=== PATIENT | male | born 1970 | race Caucasian/White ===

== ENCOUNTER 2020-09-20 15:22 | Emergency (ER) | payer OTHER ==
[2020-09-20 15:30] VITALS: TEMP 97.9
[2020-09-20] MEDS ORDERED: hydrALAZINE HCL 20 MG/ML 1 ML VIAL IVP STA ×2 (15:53→17:17)
--- NOTE | 2020-09-20 15:56 | ED ---
General Adult HPI - General Chief complaint: Recheck/Abnormal Lab/Rx Stated complaint: Hypertension Time Seen by Provider: 09/20/20 15:40 Source: patient, RN notes reviewed Mode of arrival: wheelchair Limitations: no limitations - History of Present Illness Initial comments: Patient is a pleasant 50-year-old male presenting to the emergency department w ith hypertension. Patient went to have dental procedure done however blood pressure was too high. Patient then went to his primary care physician who he has not seen in 6 years. Blood pressure was also high there and patient was advised to come to the emergency department. Patient denies any complaints and does feel symptom-free. No chest pain or dyspnea. No weakness. Patient has history of hypertension however has not been on medications for years. Patient is unclear which medication he is supposed to be on. - Related Data Home Medications Medication Instructions Recorded Confirmed Ibuprofen 800 mg PO Q8H PRN 09/20/20 09/20/20 Multivitamins, Thera [Multivitamin 1 tab PO DAILY 09/20/20 09/20/20 (formulary)] Previous Rx's Medication Instructions Recorded amLODIPine [Norvasc] 5 mg PO DAILY #7 tab 09/20/20 Allergies Allergy/AdvReac Type Severity Reaction Status Date / Time No Known Allergies Allergy Verified 09/20/20 17:11 Review of Systems ROS Statement: Those systems with pertinent positive or pertinent negative responses have been documented in the HPI. ROS Other: All systems not noted in ROS Statement are negative. Constitutional: Denies: fever Eyes: Denies: eye pain ENT: Denies: ear pain Respiratory: Denies: cough, dyspnea Cardiovascular: Denies: chest pain Endocrine: Denies: fatigue Gastrointestinal: Denies: abdominal pain Genitourinary: Denies: dysuria Musculoskeletal: Denies: back pain Skin: Denies: rash Neurological: Denies: headache, weakness, confusion Past Medical History Past Medical History: Hypertension History of Any Multi-Drug Resistant Organisms: None Reported Past Surgical History: No Surgical Hx Reported Past Psychological History: No Psychological Hx Reported Smoking Status: Current every day smoker Past Alcohol Use History: Daily Past Drug Use History: Marijuana General Exam Limitations: no limitations General appearance: alert, in no apparent distress Head exam: Present: atraumatic, normocephalic Eye exam: Present: normal appearance Neck exam: Present: normal inspection Respiratory exam: Present: normal lung sounds bilaterally Cardiovascular Exam: Present: regular rate, normal rhythm, normal heart sounds Expanded Peripheral pulses: 2+: Radial (R), Radial (L), Posterior Tibialis (R), Posterior Tibialis (L) GI/Abdominal exam: Present: soft. Absent: distended, tenderness Extremities exam: Present: normal inspection Neurological exam: Present: alert. Absent: motor sensory deficit Psychiatric exam: Present: normal affect, normal mood Skin exam: Present: normal color Course Vital Signs 09/20/20 09/20/20 09/20/20 15:26 16:04 16:35 Temperature 97.9 F Pulse Rate 80 75 83 Respiratory 20 18 18 Rate Blood Pressure 201/109 188/101 176/102 O2 Sat by Pulse 98 95 95 Oximetry 09/20/20 09/20/20 09/20/20 16:40 17:00 17:25 Temperature Pulse Rate 70 Respiratory 18 Rate Blood Pressure 164/90 157/86 147/82 O2 Sat by Pulse 99 Oximetry EKG Findings - EKG Comments: EKG Findings:: Normal sinus rhythm at 78. WI 162. QRS 104. QT 368. QTC 419. Left axis. Normal QRS. No acute ST change. Medical Decision Making - Medical Decision Making Patient reevaluated and resting comfortably in bed. Blood pressure 150/91. Pat ient rates symptom-free. Patient and family updated on results and plan. - Lab Data Result diagrams: 09/20/20 15:56 09/20/20 15:56 Lab Results 09/20/20 09/20/20 09/20/20 Range/Units 15:56 15:56 15:59 WBC 7.9 (3.8-10.6) k/uL RBC 4.94 (4.30-5.90) m/uL Hgb 15.4 (13.0-17.5) gm/dL Hct 45.4 (39.0-53.0) % MCV 91.8 (80.0-100.0) fL MCH 31.1 (25.0-35.0) pg MCHC 33.9 (31.0-37.0) g/dL RDW 13.2 (11.5-15.5) % Plt Count 208 (150-450) k/uL MPV 10.9 Neutrophils % 54 % Lymphocytes % 35 % Monocytes % 6 % Eosinophils % 2 % Basophils % 1 % Neutrophils # 4.3 (1.3-7.7) k/uL Lymphocytes # 2.8 (1.0-4.8) k/uL Monocytes # 0.5 (0-1.0) k/uL Eosinophils # 0.2 (0-0.7) k/uL Basophils # 0.0 (0-0.2) k/uL Sodium 136 L (137-145) mmol/L Potassium 4.5 (3.5-5.1) mmol/L Chloride 108 H (98-107) mmol/L Carbon Dioxide 19 L (22-30) mmol/L Anion Gap 9 mmol/L BUN 15 (9-20) mg/dL Creatinine 0.80 (0.66-1.25) mg/dL Est GFR (CKD-EPI)AfAm >90 (>60 ml/min/1.73 sqM) Est GFR (CKD-EPI)NonAf >90 (>60 ml/min/1.73 sqM) Glucose 101 H (74-99) mg/dL Calcium 9.7 (8.4-10.2) mg/dL Total Bilirubin 0.5 (0.2-1.3) mg/dL AST 30 (17-59) U/L ALT 26 (4-49) U/L Alkaline Phosphatase 86 (38-126) U/L Total Protein 7.9 (6.3-8.2) g/dL Albumin 4.6 (3.5-5.0) g/dL Urine Color Light Yellow Urine Appearance Clear (Clear) Urine pH 6.0 (5.0-8.0) Ur Specific [place] 1.007 (1.001-1.035) Urine Protein Negative (Negative) Urine Glucose (UA) Negative (Negative) Urine Ketones Negative (Negative) Urine Blood Negative (Negative) Urine Nitrite Negative (Negative) Urine Bilirubin Negative (Negative) Urine Urobilinogen <2.0 (<2.0) mg/dL Ur Leukocyte Esterase Negative (Negative) Disposition Clinical Impression: Hypertension Disposition: HOME SELF-CARE Condition: Stable Instructions (If sedation given, give patient instructions): Hypertension (ED) Additional Instructions: Please do follow-up with your primary care physician in the next day or 2 for recheck. Prescription for blood pressure medication has been sent your pharmacy. Return for uncontrolled blood pressure, chest pain or weakness, worsening symptoms or any other concerns. Prescriptions: amLODIPine [Norvasc] 5 mg PO DAILY #7 tab Is patient prescribed a controlled substance at d/c from ED?: No Referrals: Gertrude Chacko MD [Primary Care Provider] - 1-2 days Time of Disposition: 17:37
[2020-09-20 16:05] VITALS: RESP 18
[2020-09-20 16:12] LABS: Basophils % (A) 1 %; Eosinophils # (A) 0.2 k/uL (0-0.7); Eosinophils % (A) 2 %; HCT 45.4 % (39.0-53.0); HGB 15.4 gm/dL (13.0-17.5); Lymphocytes # (A) 2.8 k/uL (1.0-4.8); Lymphocytes % (A) 35 %; MCH 31.1 pg (25.0-35.0); MCHC 33.9 g/dL (31.0-37.0); MCV 91.8 fL (80.0-100.0); Mean Platelet Volume 10.9; Monocytes # (A) 0.5 k/uL (0-1.0); Monocytes % (A) 6 %; Neutrophils # (A) 4.3 k/uL (1.3-7.7); Neutrophils % (A) 54 %; Platelet Count 208 k/uL (150-450); RBC 4.94 m/uL (4.30-5.90); RDW 13.2 % (11.5-15.5); WBC 7.9 k/uL (3.8-10.6)
[2020-09-20 16:22] LABS: ALT 26 U/L (4-49); AST 30 U/L (17-59); African American GFR (CKD) >90 (>60 ml/min/1.73 sqM); Albumin 4.6 g/dL (3.5-5.0); Alkaline Phosphatase 86 U/L (38-126); Anion Gap 9 mmol/L; Blood Urea Nitrogen 15 mg/dL (9-20); Calcium 9.7 mg/dL (8.4-10.2); Carbon Dioxide 19 mmol/L (22-30); Chloride 108 mmol/L (98-107); Glucose 101 mg/dL (74-99); Non-African American GFR(CKD) >90 (>60 ml/min/1.73 sqM); Potassium 4.5 mmol/L (3.5-5.1); Sodium 136 mmol/L (137-145); Total Bilirubin 0.5 mg/dL (0.2-1.3); Total Protein 7.9 g/dL (6.3-8.2)
--- NOTE | 2020-09-20 16:22 | XR ---
EXAMINATION TYPE: XR chest 2V DATE OF EXAM: 09/20/2020 COMPARISON: NONE HISTORY: Hypertension TECHNIQUE: Frontal and lateral views of the chest are obtained. FINDINGS: There is no focal air space opacity, pleural effusion, or pneumothorax seen. The cardiac silhouette size is within normal limits. There are overlying leads. There is a mild spinal curvature . The osseous structures are intact. IMPRESSION: No acute cardiopulmonary process.
[2020-09-20 16:47] LABS: Appearance,Urine Clear (Clear); Bilirubin,Urine Negative (Negative); Blood,Urine Negative (Negative); Color,Urine Light Yellow; Glucose,Urine (UA) Negative (Negative); Ketones,Urine Negative (Negative); Leukocyte Esterase,Urine Negative (Negative); Nitrite,Urine Negative (Negative); Protein,Urine Negative (Negative); Specific Gravity,Urine 1.007 (1.001-1.035); Urobilinogen,Urine <2.0 mg/dL (<2.0)
[2020-09-20 17:26] VITALS: BP 147/82; PULSE 70
== END 2020-09-20 17:41 | disposition home or self-care (01) ==
LOC: EC 15:22
DX: I10 Essential (primary) hypertension (principal); F17.200 Nicotine dependence, unspecified, uncomplicated; Z79.899 Other long term (current) drug therapy
CPT/HCPCS: 36415; 93005; 80053; 85025; 81003; 71046; 99283; 96374; J0360

== ENCOUNTER 2020-11-07 08:34 | Day surgery (SDC) | payer OTHER ==
[2020-11-04 16:19] VITALS: BMI 27.1
[~2020-11-07 08:34] MED LIST: LACTATED RINGERS 1,000 ML IV SCH
[2020-11-07 09:35] VITALS: RESP 16; TEMP 97.5
[2020-11-07] MEDS ORDERED: LIDOCAINE 1% (10MG/ML) FOR IV START INTRADERMA ONE (09:40)
[2020-11-07] MEDS ORDERED: PROPOFOL 10 MG/ML 20 ML VIAL IV ONE (10:05)
--- NOTE | 2020-11-07 10:09 | P.GSHP ---
History of Present Illness H&P Date: 11/07/20 Chief Complaint: Screening colonoscopy This a 50-year-old male presents today for screening colonoscopy patient denies a significant complaints.. Past Medical History Past Medical History: Hyperlipidemia, Hypertension History of Any Multi-Drug Resistant Organisms: None Reported Past Surgical History: No Surgical Hx Reported Past Anesthesia/Blood Transfusion Reactions: No Reported Reaction Smoking Status: Current every day smoker Medications and Allergies Home Medications Medication Instructions Recorded Confirmed Type Aspirin [Adult Low Dose Aspirin EC] 81 mg PO DAILY 11/04/20 11/04/20 History Atorvastatin [Lipitor] 40 mg PO HS 11/04/20 11/04/20 History Carvedilol [Coreg] 3.125 mg PO BID 11/04/20 11/04/20 History Losartan [Cozaar] 25 mg PO QAM 11/04/20 11/04/20 History Multivitamins, Thera [Multivitamin 1 tab PO DAILY 11/04/20 11/04/20 History (formulary)] amLODIPine [Norvasc] 10 mg PO QAM 11/04/20 11/04/20 History Allergies Allergy/AdvReac Type Severity Reaction Status Date / Time No Known Allergies Allergy Verified 11/07/20 09:24 Surgical - Exam Vital Signs Temp Pulse Resp BP Pulse Ox 97.5 F L 63 16 177/101 96 11/07/20 09:31 11/07/20 09:31 11/07/20 09:31 11/07/20 09:31 11/07/20 09:31 - General well developed, well nourished, no distress - Eyes PERRL - ENT normal pinna - Neck no masses - Respiratory normal expansion - Cardiovascular Rhythm: regular - Abdomen Abdomen: soft, non tender Assessment and Plan Assessment: We'll perform screening colonoscopy
--- NOTE | 2020-11-07 10:16 | P.OP ---
Date of Procedure: 11/07/20 Preoperative Diagnosis: Screening colonoscopy Postoperative Diagnosis: Normal colonoscopy Procedure(s) Performed: Colonoscopy Anesthesia: MAC Surgeon: Mitesh Wilkerson Pathology: none sent Condition: stable Disposition: PACU Description of Procedure: PROCEDURE: The patient was placed on the endoscopy table in the lateral position. Digital rectal examination was performed which revealed no abnormalities. The prostate was symmetrical without nodules. Flexible colonoscope was then placed in the patient's anus and passed throughout the entire colon. The ileocecal valve was visualized. The cecum, ascending, transverse, descending and sigmoid colon were normal. The rectum was normal as well. There were no masses, polyps or diverticula noted in the entire colon. SUMMARY OF FINDINGS: Normal colonoscopy.
[2020-11-07 10:41] VITALS: BP 155/90; PULSE 59
== END 2020-11-07 11:02 | disposition home or self-care (01) ==
LOC: ORWHC2ENDO 08:34
PROVIDERS: ATTEND Surgery
DX: Z12.11 Encounter for screening for malignant neoplasm of colon (principal); I10 Essential (primary) hypertension; E78.5 Hyperlipidemia, unspecified; F17.210 Nicotine dependence, cigarettes, uncomplicated; Z79.82 Long term (current) use of aspirin; Z79.899 Other long term (current) drug therapy
CPT/HCPCS: J2704; G0121; 45378

== ENCOUNTER 2021-02-26 12:05 | Inpatient (IN) | payer OTHER ==
[2021-02-26] MEDS ORDERED: ASPIRIN 81 MG PO STA (12:17)
[2021-02-26] MEDS ORDERED: MORPHINE SULFATE 4 MG/ML SYRINGE IV STA (12:17)
[2021-02-26 12:41] LABS: Basophils # (A) 0.1 k/uL (0-0.2); Basophils % (A) 0 %; Eosinophils # (A) 0.2 k/uL (0-0.7); Eosinophils % (A) 2 %; HCT 43.8 % (39.0-53.0); HGB 15.1 gm/dL (13.0-17.5); Lymphocytes # (A) 3.5 k/uL (1.0-4.8); Lymphocytes % (A) 31 %; MCH 31.8 pg (25.0-35.0); MCHC 34.4 g/dL (31.0-37.0); MCV 92.4 fL (80.0-100.0); Mean Platelet Volume 11.1; Monocytes # (A) 0.6 k/uL (0-1.0); Monocytes % (A) 5 %; Neutrophils # (A) 6.9 k/uL (1.3-7.7); Neutrophils % (A) 61 %; Platelet Count 267 k/uL (150-450); RBC 4.74 m/uL (4.30-5.90); RDW 13.7 % (11.5-15.5); WBC 11.3 k/uL (3.8-10.6)
--- NOTE | 2021-02-26 12:48 | XR ---
EXAMINATION TYPE: XR chest 2V DATE OF EXAM: 02/26/2021 COMPARISON: 09/20/2020 TECHNIQUE: PA and lateral views submitted. HISTORY: Pain FINDINGS: The lungs are clear and there is no pneumothorax, pleural effusion, or focal pneumonia. Arthropathy of the shoulders. No overt failure. Heart size normal. Hypertrophic and degenerative change of the s [place]. IMPRESSION: 1. No acute process.
[2021-02-26 12:54] LABS: Albumin 4.7 g/dL (3.5-5.0); Potassium 3.9 mmol/L (3.5-5.1); Total Bilirubin 0.5 mg/dL (0.2-1.3); Total Protein 7.7 g/dL (6.3-8.2)
[2021-02-26 13:04] LABS: INR 0.9 (<1.2); Prothrombin Time 9.9 sec (9.0-12.0)
--- NOTE | 2021-02-26 13:07 | ED ---
General Adult HPI - General Chief complaint: Chest Pain Stated complaint: Chest Pain/Dizziness Time Seen by Provider: 02/26/21 12:10 Source: patient, RN notes reviewed, old records reviewed Mode of arrival: wheelchair - History of Present Illness Initial comments: Patient is a 51-year-old male with past medical history remarkable for tobacco use, hypertension presents to emergency department approximately 2 hours of constant chest pain. He describes as a constant sharp sensation over the left chest. It does not radiate. He denies any palliative or provocative factors. He is a [facility] He endorsed a feeling of lightheadedness earlier when the chest and sternum which is since resolved. He currently states he feels okay except for the chest pain. Denies any current shortness of breath, abdominal pain, nausea, vomiting. Denies any fatigue. He has no other acute complaints at this time. Denies any history of hemoptysis, or external swelling, worsening exertional dyspnea. Denies any worsening orthopnea. Denies any history of [place] previously. - Related Data Home Medications Medication Instructions Recorded Confirmed Aspirin [Adult Low Dose Aspirin EC] 81 mg PO DAILY 11/04/20 02/26/21 Atorvastatin [Lipitor] 40 mg PO HS 11/04/20 02/26/21 amLODIPine [Norvasc] 10 mg PO DAILY 11/04/20 02/26/21 Carvedilol [Coreg] 6.25 mg PO BID 02/26/21 02/26/21 Ergocalciferol [Vitamin D2 (1250 1,250 mcg PO MO 02/26/21 02/26/21 Mcg = 35280 Iu)] Losartan Potassium 100 mg PO DAILY 02/26/21 02/26/21 Allergies Allergy/AdvReac Type Severity Reaction Status Date / Time No Known Allergies Allergy Verified 02/26/21 13:53 Review of Systems ROS Statement: Those systems with pertinent positive or pertinent negative responses have been documented in the HPI. Review of Systems: CONST: Denies fever EYES: Denies blurry vision ENT: Denies nasal congestion C/V: Endorses chest pain RESP: Denies shortness of breath GI: Denies abdominal pain : Denies dysuria SKIN: Denies rash. MSK: Denies joint pain. NEURO: Denies headache ROS Other: All systems not noted in ROS Statement are negative. Past Medical History Past Medical History: Hyperlipidemia, Hypertension History of Any Multi-Drug Resistant Organisms: None Reported Past Surgical History: No Surgical Hx Reported Past Anesthesia/Blood Transfusion Reactions: No Reported Reaction Past Psychological History: No Psychological Hx Reported Smoking Status: Current every day smoker General Exam - General Exam Comments Initial Comments: General: Appears in mild distress secondary to chest discomfort. HEAD: Normal with no signs of head trauma. EYES: PERRLA, EOMI, conjunctiva normal, no discharge. Pupils are 3 mm bilaterally. ENT: Hearing grossly intact, normal oropharynx. RESPIRATORY: Clear breath sounds bilaterally. No wheezes, rales, or rhonchi. C/V: Regular rate and rhythm. S1 and S2 auscultated, no edema, peripheral pulses 2+ and intact throughout. Chest pain is nonreproducible on palpation. ABD: Abd is soft, nontender, nondistended EXT: Normal range of motion, no obvious deformity SKIN: No rashes or lesions observed on exposed skin. NEURO: Alert and oriented x 4. Cranial nerves II-XII intact. No focal sensory or strength deficits. Course Vital Signs 02/26/21 02/26/21 02/26/21 12:05 12:30 14:00 Temperature 97.6 F Pulse Rate 64 63 46 L Respiratory 18 14 17 Rate Blood Pressure 133/78 120/78 O2 Sat by Pulse 100 99 99 Oximetry 02/26/21 14:30 Temperature Pulse Rate 48 L Respiratory 17 Rate Blood Pressure 154/81 O2 Sat by Pulse 99 Oximetry Medical Decision Making - Medical Decision Making Based on the patient's presentation and physical exam, I'm concerned for cardiac etiology for his current symptoms. Therefore we will obtain cardiac workup, which includes EKG, chest x-ray, troponin, basic labs. He'll be given morphine and aspirin. He'll be connected to continuous cardiac monitoring while is here in the department. Patient was in agreement this plan. Patient's EKG shows no signs of acute ischemia. Chest x-ray shows no acute cardiopulmonary process. Patient laboratory studies are remarkable for a mild leukocytosis of 11.3 which is likely reactive. Patient does appear to have an RHONDA with an elevated BUN/creatinine of 2.30 and BUN of 28. Nonanion gap metabolic acidosis is present, likely secondary to RHONDA and Dehydration. Troponin is negative. COVID is negative. Calcium is mildly elevated to 11.0. Remainder of the laboratory studies are unremarkable. On reevaluation, patient is still having intermittent chest pain no known palliative or provocative factors, however is currently resting comfortably. I did discuss with him the fact that he is still symptomatic, despite having normal workup except for [place] eye, did recommend that we admit him to the hosp ital. He was in agreement this plan. Repeat troponins will be obtained. Repeat EKG was also obtained and showed no signs of acute ischemia. I consult to cardiology, Dr. Parisi, who recommended that we start the patient on heparin, order an echo, and monitored with repeat troponins with admission to a telemetry bed. I was in agreement this plan. Patient was therefore started on heparin after I discussed it with the patient. He was also in agreement this plan. I spoke with the admitting team under Dr. Bejarano who accepted the admission. Patient was therefore admitted to a telemetry bed in serious condition. - Lab Data Result diagrams: 02/26/21 12:12 02/26/21 12:12 Lab Results 02/26/21 02/26/21 02/26/21 Range/Units 12:12 12:12 12:12 WBC 11.3 H (3.8-10.6) k/uL RBC 4.74 (4.30-5.90) m/uL Hgb 15.1 (13.0-17.5) gm/dL Hct 43.8 (39.0-53.0) % MCV 92.4 (80.0-100.0) fL MCH 31.8 (25.0-35.0) pg MCHC 34.4 (31.0-37.0) g/dL RDW 13.7 (11.5-15.5) % Plt Count 267 (150-450) k/uL MPV 11.1 Neutrophils % 61 % Lymphocytes % 31 % Monocytes % 5 % Eosinophils % 2 % Basophils % 0 % Neutrophils # 6.9 (1.3-7.7) k/uL Lymphocytes # 3.5 (1.0-4.8) k/uL Monocytes # 0.6 (0-1.0) k/uL Eosinophils # 0.2 (0-0.7) k/uL Basophils # 0.1 (0-0.2) k/uL PT 9.9 (9.0-12.0) sec INR 0.9 (<1.2) APTT 20.8 L (22.0-30.0) sec Sodium 138 (137-145) mmol/L Potassium 3.9 (3.5-5.1) mmol/L Chloride 110 H (98-107) mmol/L Carbon Dioxide 13 L (22-30) mmol/L Anion Gap 15 mmol/L BUN 28 H (9-20) mg/dL Creatinine 2.30 H (0.66-1.25) mg/dL Est GFR (CKD-EPI)AfAm 36 (>60 ml/min/1.73 sqM) Est GFR (CKD-EPI)NonAf 31 (>60 ml/min/1.73 sqM) Glucose 117 H (74-99) mg/dL Calcium 11.0 H (8.4-10.2) mg/dL Magnesium 2.0 (1.6-2.3) mg/dL Total Bilirubin 0.5 (0.2-1.3) mg/dL AST 26 (17-59) U/L ALT 20 (4-49) U/L Alkaline Phosphatase 80 (38-126) U/L Troponin I (0.000-0.034) ng/mL Total Protein 7.7 (6.3-8.2) g/dL Albumin 4.7 (3.5-5.0) g/dL Coronavirus (PCR) (Not Detectd) 02/26/21 02/26/21 Range/Units 12:12 14:10 WBC (3.8-10.6) k/uL RBC (4.30-5.90) m/uL Hgb (13.0-17.5) gm/dL Hct (39.0-53.0) % MCV (80.0-100.0) fL MCH (25.0-35.0) pg MCHC (31.0-37.0) g/dL RDW (11.5-15.5) % Plt Count (150-450) k/uL MPV Neutrophils % % Lymphocytes % % Monocytes % % Eosinophils % % Basophils % % Neutrophils # (1.3-7.7) k/uL Lymphocytes # (1.0-4.8) k/uL Monocytes # (0-1.0) k/uL Eosinophils # (0-0.7) k/uL Basophils # (0-0.2) k/uL PT (9.0-12.0) sec INR (<1.2) APTT (22.0-30.0) sec Sodium (137-145) mmol/L Potassium (3.5-5.1) mmol/L Chloride (98-107) mmol/L Carbon Dioxide (22-30) mmol/L Anion Gap mmol/L BUN (9-20) mg/dL Creatinine (0.66-1.25) mg/dL Est GFR (CKD-EPI)AfAm (>60 ml/min/1.73 sqM) Est GFR (CKD-EPI)NonAf (>60 ml/min/1.73 sqM) Glucose (74-99) mg/dL Calcium (8.4-10.2) mg/dL Magnesium (1.6-2.3) mg/dL Total Bilirubin (0.2-1.3) mg/dL AST (17-59) U/L ALT (4-49) U/L Alkaline Phosphatase (38-126) U/L Troponin I <0.012 (0.000-0.034) ng/mL Total Protein (6.3-8.2) g/dL Albumin (3.5-5.0) g/dL Coronavirus (PCR) Not Detected (Not Detectd) - EKG Data -: EKG Interpreted by Me EKG Comments: 12-lead Electrocardiogram Interpretation Note EKG was reviewed and interpreted by myself. 12-lead ECG performed at 1212 is interpreted by me as revealing normal sinus rhythm at a rate of 67 beats per minute. [place] is normal. [place] interval is 160 ms, QRS duration is 104 ms, QTc is 414 ms.. There were no ST or T wave abnormalities to suggest myocardial ischemia or injury. R wave progression across the precordium was satisfactory. By my interpretation this EKG is non-diagnostic for acute ischemia. Repeat EKG was obtained. 12-lead Electrocardiogram Interpretation Note EKG was reviewed and interpreted by myself. 12-lead ECG performed at 1437 is interpreted by me as revealing sinus bradycardia at a rate of 46 beats per min [place]. [place] is normal. [place] interval is 164 ms, QRS ration is 100 ms, QTc is 380 ms.. There were no ST or T wave abnormalities to suggest myocardial ischemia or injury. R wave progression across the precordium was satisfactory. By my interpretation this EKG is non-diagnostic for acute ischemia. Disposition Clinical Impression: Sinus bradycardia, RHONDA (acute kidney injury), Metabolic acidosis, normal anion gap (NAG), Chest pain of unknown etiology, Hypercalcemia Disposition: ADMITTED IP TO THIS HOSP Condition: Serious Referrals: Gertrude Chacko MD [Primary Care Provider] - 1-2 days
[2021-02-26 13:10] LABS: Partial Thromboplastin Time 20.8 sec (22.0-30.0)
[2021-02-26] MEDS ORDERED: HEPARIN SODIUM 1,000 UN/ML (10ML VL) IV ONE (13:54)
[2021-02-26] MEDS ORDERED: SODIUM CHLORIDE 0.9% 1,000 ML IV ONE ×2 (14:04→15:07)
[2021-02-26] MEDS: HEPARIN SOD,PORK IN 0.45% NACL 25,000 UNIT in 0.45% NACL 1 250ML.BAG IV SCH (14:35)
[2021-02-26] MEDS ORDERED: NALOXONE 0.4 MG/ML 1 ML VIAL IV PRN (14:35)
[2021-02-26] MEDS ORDERED: MORPHINE SULFATE 4 MG/ML SYRINGE IV PRN (14:35)
--- NOTE | 2021-02-26 16:42 | P.HPIM ---
History of Present Illness 51-year-old the male came in with complaints of chest pain constant exertional on the left side of the chest x-ray episodes with the lightheadedness and some diaphoresis denied any shortness of breath. Patient had food poisoning and gastroenteritis leading to nausea and vomiting for the last few days because of which patient is dehydrated and patient was found to have creatinine of 2.30. Patient used to smoke 2 packs of cigarettes per day has been smoking about half a pack a day. Patient chest pain sharp in nature nonradiating. Nonpleuritic not associated with food. Patient denied any exertional dyspnea. Patient follows up with Dr. Daniels because of uncontrolled blood pressure and patient is supposed to get an outpatient stress test. Patient was never worked up for coronary artery disease in the past. REVIEW OF SYSTEMS: CONSTITUTIONAL: No fever, no malaise, no fatigue. HEENT: No recent visual problems or hearing problems. Denied any sore throat. CARDIOVASCULAR: No PND, no palpitations, no syncope. PULMONARY: No shortness of breath, no cough, no hemoptysis. GASTROINTESTINAL: No diarrhea, no nausea, no vomiting, no abdominal pain. NEUROLOGICAL: No headaches, no weakness, no numbness. HEMATOLOGICAL: Denies any bleeding or petechiae. GENITOURINARY: Denies any burning micturition, frequency, or urgency. MUSCULOSKELETAL/RHEUMATOLOGICAL: Denies any joint pain, swelling, or any muscle pain. ENDOCRINE: Denies any polyuria or polydipsia. The rest of the 14-point review of systems is negative. PHYSICAL EXAMINATION: GENERAL: The patient is alert and oriented x3, not in any acute distress. Well developed, well nourished. HEENT: Pupils are round and equally reacting to light. EOMI. No scleral icterus. No conjunctival pallor. Normocephalic, atraumatic. No pharyngeal erythema. No thyromegaly. CARDIOVASCULAR: S1 and S2 present. No murmurs, rubs, or gallops. PULMONARY: Chest is clear to auscultation, no wheezing or crackles. ABDOMEN: Soft, nontender, nondistended, normoactive bowel sounds. No palpable organomegaly. MUSCULOSKELETAL: No joint swelling or deformity. EXTREMITIES: No cyanosis, clubbing, or pedal edema. NEUROLOGICAL: Gross neurological examination did not reveal any focal deficits. SKIN: No rashes. Assessment and plan -Chest pain we'll rule out a concurrent syndromes facet of troponin is negative EKG did not show any significant abnormality lightheadedness can be from dehydration -Acute renal failure prerenal azotemia probably from dehydration intravascular depletion patient previous creatinine was within normal limits, patient will be started on IV fluids -Metabolic acidosis commendation of noniron gap and an anion gap metabolic acidosis non-anion gap is secondary to hyperchloremia anion gap is probably from lactic acidosis from dehydration for which patient will receive IV fluids as mentioned above -Hypertension -Hyperlipidemia - nicotine use: Counseling was provided DVT prophylaxis: Patient is on heparin at this time Past Medical History Past Medical History: Hyperlipidemia, Hypertension History of Any Multi-Drug Resistant Organisms: None Reported Past Surgical History: No Surgical Hx Reported Past Anesthesia/Blood Transfusion Reactions: No Reported Reaction Past Psychological History: No Psychological Hx Reported Smoking Status: Current every day smoker Medications and Allergies Home Medications Medication Instructions Recorded Confirmed Type Aspirin [Adult Low Dose Aspirin EC] 81 mg PO DAILY 11/04/20 02/26/21 History Atorvastatin [Lipitor] 40 mg PO HS 11/04/20 02/26/21 History amLODIPine [Norvasc] 10 mg PO DAILY 11/04/20 02/26/21 History Carvedilol [Coreg] 6.25 mg PO BID 02/26/21 02/26/21 History Ergocalciferol [Vitamin D2 (1250 1,250 mcg PO MO 02/26/21 02/26/21 History Mcg = 83469 Iu)] Losartan Potassium 100 mg PO DAILY 02/26/21 02/26/21 History Allergies Allergy/AdvReac Type Severity Reaction Status Date / Time No Known Allergies Allergy Verified 02/26/21 13:53 Physical Exam Vitals: Vital Signs Temp Pulse Resp BP Pulse Ox 02/26/21 16:00 48 L 16 148/82 97 02/26/21 14:30 48 L 17 154/81 99 02/26/21 14:00 46 L 17 99 02/26/21 12:30 63 14 120/78 99 02/26/21 12:05 97.6 F 64 18 133/78 100 Intake and Output 02/26/21 02/26/21 02/26/21 06:59 14:59 22:59 Other: Weight 82.554 kg Results CBC & Chem 7: 02/26/21 12:12 02/26/21 12:12 Labs: Abnormal Lab Results - Last 24 Hours (Table) 02/26/21 02/26/21 02/26/21 Range/Units 12:12 12:12 12:12 WBC 11.3 H (3.8-10.6) k/uL APTT 20.8 L (22.0-30.0) sec Chloride 110 H (98-107) mmol/L Carbon Dioxide 13 L (22-30) mmol/L BUN 28 H (9-20) mg/dL Creatinine 2.30 H (0.66-1.25) mg/dL Glucose 117 H (74-99) mg/dL Calcium 11.0 H (8.4-10.2) mg/dL
[2021-02-26] MEDS: carvediloL 6.25 MG TAB PO SCH (17:58)
[2021-02-26] MEDS: ATORVASTATIN 40 MG TAB PO SCH (19:34)
[2021-02-26] MEDS: HEPARIN SODIUM 1,000 UN/ML (10ML VL) IV PRN (22:00)
[2021-02-27 03:43] LABS: Partial Thromboplastin Time 47.6 sec (22.0-30.0); Prothrombin Time 10.4 sec (9.0-12.0)
[2021-02-27] MEDS ORDERED: CALCIUM CARBONATE 500 MG CHEWABLE PO PRN (05:27)
[2021-02-27] MEDS: carvediloL 6.25 MG TAB PO SCH ×2 (08:53→18:14)
[2021-02-27] MEDS ORDERED: AMINOPHYLLINE 500 MG/20 ML VIAL IV PRN (09:00)
[2021-02-27] MEDS ORDERED: REGADENOSON 0.4 MG/5 ML SYRINGE IV PRN (09:00)
[2021-02-27] MEDS ORDERED: CAFFEINE CITRATE 60 MG/3 ML VIAL IV PRN (09:00)
[2021-02-27] MEDS ORDERED: LOSARTAN 50 MG TAB PO SCH (09:00)
[2021-02-27] MEDS: ASPIRIN 81 MG PO SCH (09:01)
[2021-02-27] MEDS: SODIUM CHLORIDE 0.9% 1,000 ML IV SCH ×2 (09:01→22:15)
[2021-02-27] MEDS: amLODIPine 10 MG TAB PO SCH (09:01)
[2021-02-27] MEDS: HEPARIN SOD,PORK IN 0.45% NACL 25,000 UNIT in 0.45% NACL 1 250ML.BAG IV SCH (10:22)
[2021-02-27 11:31] LABS: Basophils # (A) 0.05 X 10*3/uL (0.00-0.10); Basophils % (A) 0.5 %; Eosinophils # (A) 0.25 X 10*3/uL (0.04-0.35); Eosinophils % (A) 2.6 %; HCT 37.3 % (39.6-50.0); HGB 12.5 g/dL (13.0-17.0); Lymphocytes # (A) 3.48 X 10*3/uL (0.90-5.00); Lymphocytes % (A) 36.7 %; MCH 30.6 pg (27.0-32.0); MCHC 33.5 g/dL (32.0-37.0); MCV 91.2 fL (80.0-97.0); Mean Platelet Volume 13.9 fL (9.5-12.2); Monocytes # (A) 0.81 X 10*3/uL (0.20-1.00); Monocytes % (A) 8.6 %; Neutrophils # (A) 4.86 X 10*3/uL (1.80-7.70); Neutrophils % (A) 51.4 %; Platelet Count 177 X 10*3/uL (140-440); RBC 4.09 X 10*6/uL (4.40-5.60); RDW 13.9 % (11.5-14.5); WBC 9.47 X 10*3/uL (4.50-10.00)
[2021-02-27 11:32] LABS: Acanthocytes 2+
--- NOTE | 2021-02-27 11:59 | P.CRDCN ---
History of Present Illness History of present illness: HISTORY OF PRESENTING ILLNESS This is a pleasant 51-year-old with past medical history significant for Hypertension, tobacco abuse, mild carotid atherosclerosis, mild mitral regurgitation. He was recently seen 12/2020 by Christa in the office and had valsartan started. Patient had been doing fairly well up until yesterday. Patient was at work when he started feeling a sharp stabbing chest pain on the left side of his chest and also started feeling lightheaded and somewhat diaphoretic. 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 He knew he is not feeling well and therefore presented to emergency department. He was given aspirin and morphine and admits the pain did subside while in the emergency department. Blood work showed mild leukocytosis 11.3, hemoglobin 15.1, bicarb 13, new HPI with BUN 28, creatinine 2.3 with baseline creatinine 0.8 from September 2020, calcium 11.0, troponins normal 3, AST, ALT normal. Coronavirus was normal. EKG showed normal sinus rhythm without ST or T-wave abnormalities. Patient's blood pressure has been well-controlled. He denies any further recurrence of chest pain. He does admit to taking small amounts of Motrin however this is nothing new.. His losartan has been held secondary to acute kidney injury. His last echocardiogram was from October 2020 which showed ejection fraction 60%, normal diastolic function, mild LVH, mild mitral regurgitation. REVIEW OF SYSTEMS At the time of my exam: CONSTITUTIONAL: Denies fever or chills. CARDIOVASCULAR: +chest pain, +shortness of breath, no orthopnea, PND or palpitations. RESPIRATORY: Denies cough. GASTROINTESTINAL: Denies abdominal pain, diarrhea, constipation, nausea or vomiting. MUSCULOSKELETAL: Denies myalgias. NEUROLOGIC: Denies numbness, tingling or weakness. ENDOCRINE: Denies fatigue, weight change, polydipsia or polyurina. GENITOURINARY: Denies burning, hematuria or urgency with micturation. HEMATOLOGIC: Denies history of anemia or bleeding. PHYSICAL EXAMINATION Vital signs reviewed. CONSTITUTIONAL: No apparent distress. HEENT: Head is normocephalic. Pupils are equal, round. Sclerae anicteric. Mucous membranes of the mouth are moist. No JVD. No carotid bruit. CHEST EXAMINATION: Lungs are clear to auscultation. No chest wall tenderness is noted on palpation or with deep breathing. HEART EXAMINATION: Regular rate and rhythm. S1, S2 heard. No murmurs, gallops or rub. ABDOMEN: Soft, nontender. Positive bowel sounds. EXTREMITIES: 2+ peripheral pulses, no lower extremity edema and no calf tenderness. NEUROLOGIC EXAMINATION: Patient is awake, alert and oriented x3. ASSESSMENT 1. New onset of chest pain, lightheadedness, shortness of breath and diaphoresis while working out in the hot sun, troponins normal 3 2. Acute kidney injury 3. Metabolic acidosis 4. Asymptomatic sinus bradycardia 5. Tobacco abuse 6. Mild mitral regurgitation PLAN Patient with new onset of atypical chest pain however associated with some diaphoresis and shortness breath. Troponins have been normal with EKG unrevealing. We will check a Lexiscan stress test tomorrow given he drank coffee this morning. Monitor creatinine. Tobacco cessation. Hold ADEEL i nhibitor, ARB. Further recommendations to follow. Past Medical History Past Medical History: Hyperlipidemia, Hypertension History of Any Multi-Drug Resistant Organisms: None Reported Past Surgical History: No Surgical Hx Reported Past Anesthesia/Blood Transfusion Reactions: No Reported Reaction Past Psychological History: No Psychological Hx Reported Smoking Status: Current every day smoker Medications and Allergies Home Medications Medication Instructions Recorded Confirmed Type Aspirin [Adult Low Dose Aspirin EC] 81 mg PO DAILY 11/04/20 02/26/21 History Atorvastatin [Lipitor] 40 mg PO HS 11/04/20 02/26/21 History amLODIPine [Norvasc] 10 mg PO DAILY 11/04/20 02/26/21 History Carvedilol [Coreg] 6.25 mg PO BID 02/26/21 02/26/21 History Ergocalciferol [Vitamin D2 (1250 1,250 mcg PO MO 02/26/21 02/26/21 History Mcg = [id number] Iu)] Losartan Potassium 100 mg PO DAILY 02/26/21 02/26/21 History Allergies Allergy/AdvReac Type Severity Reaction Status Date / Time No Known Allergies Allergy Verified 02/26/21 13:53 Physical Exam Vitals: Vital Signs Temp Pulse Pulse Pulse Resp BP BP 02/27/21 07:00 98.2 F 43 L 16 126/68 02/27/21 02:00 98.5 F 58 L 18 114/65 02/27/21 01:42 16 02/26/21 20:00 16 02/26/21 19:41 98.5 F 74 16 139/71 02/26/21 17:53 16 02/26/21 16:24 98.0 F 54 L 16 143/75 02/26/21 16:00 48 L 16 148/82 02/26/21 14:30 48 L 17 154/81 02/26/21 14:00 46 L 17 02/26/21 12:30 63 14 120/78 02/26/21 12:05 97.6 F 64 18 133/78 Pulse Ox 02/27/21 07:00 97 02/27/21 02:00 99 02/27/21 01:42 02/26/21 20:00 02/26/21 19:41 96 02/26/21 17:53 02/26/21 16:24 96 02/26/21 16:00 97 02/26/21 14:30 99 02/26/21 14:00 99 02/26/21 12:30 99 02/26/21 12:05 100 Intake and Output 02/26/21 02/27/21 02/27/21 22:59 06:59 14:59 Intake Total 72.809 73.472 80.49 Balance 72.809 73.472 80.49 Intake: Intake, IV Titration 72.809 73.472 80.49 Amount Heparin Sod,Pork in 0.45% 72.809 73.472 80.49 NaCl 25,000 unit In 0.45 % NaCl 1 250ml.bag @ 12 UNITS/KG/HR 9.906 mls/hr IV .Q24H [facility] Rx#: [id number] Other: Voiding Method Toilet Toilet Toilet # Voids 2 2 Weight 82.554 kg Results 02/27/21 03:06 02/26/21 12:12 Cardiac Enzymes 02/26/21 02/26/21 02/26/21 Range/Units 12:12 12:12 15:45 AST 26 (17-59) U/L Troponin I <0.012 <0.012 (0.000-0.034) ng/mL 02/26/21 Range/Units 20:29 AST (17-59) U/L Troponin I <0.012 (0.000-0.034) ng/mL Coagulation 02/26/21 02/26/21 02/27/21 Range/Units 12:12 20:33 03:06 PT 9.9 10.4 (9.0-12.0) sec APTT 20.8 L 25.3 47.6 H (22.0-30.0) sec CBC 02/26/21 02/27/21 Range/Units 12:12 03:06 WBC 11.3 H 9.47 (3.8-10.6) k/uL RBC 4.74 4.09 L (4.30-5.90) m/uL Hgb 15.1 12.5 L (13.0-17.5) gm/dL Hct 43.8 37.3 L (39.0-53.0) % Plt Count 267 177 (150-450) k/uL Comprehensive Metabolic Panel 02/26/21 Range/Units 12:12 Sodium 138 (137-145) mmol/L Potassium 3.9 (3.5-5.1) mmol/L Chloride 110 H (98-107) mmol/L Carbon Dioxide 13 L (22-30) mmol/L BUN 28 H (9-20) mg/dL Creatinine 2.30 H (0.66-1.25) mg/dL Glucose 117 H (74-99) mg/dL Calcium 11.0 H (8.4-10.2) mg/dL AST 26 (17-59) U/L ALT 20 (4-49) U/L Alkaline Phosphatase 80 (38-126) U/L Total Protein 7.7 (6.3-8.2) g/dL Albumin 4.7 (3.5-5.0) g/dL Current Medications Generic Name Dose Route Start Last Admin Trade Name Freq PRN Reason Stop Dose Admin Aminophylline 100 mg 02/27/21 09:00 Aminophylline 500 Mg/20 Ml Vial IV 02/27/21 13:01 ONCE PRN Patient Response Amlodipine Besylate 10 mg 02/27/21 09:00 02/27/21 09:01 Amlodipine 10 Mg Tab PO 10 mg DAILY [facility] Administration Aspirin 81 mg 02/27/21 09:00 02/27/21 09:01 Aspirin 81 Mg PO 81 mg DAILY [facility] Administration Atorvastatin Calcium 40 mg 02/26/21 21:00 02/26/21 19:34 Atorvastatin 40 Mg Tab PO 40 mg HS [facility] Administration Caffeine Citrate 60 mg 02/27/21 09:00 Caffeine Citrate 60 Mg/3 Ml Vial IV 02/27/21 13:01 ONCE PRN Patient Response Calcium Carbonate/Glycine 1,000 mg 02/27/21 05:27 02/27/21 05:32 Calcium Carbonate 500 Mg Chewable PO 1,000 mg QID PRN Administration Heartburn Carvedilol 6.25 mg 02/26/21 17:30 02/27/21 08:53 Carvedilol 6.25 Mg Tab PO Not Given BID-W/MEALS [facility] Heparin Sodium (Porcine) 0 unit 02/26/21 13:54 02/26/21 22:00 Heparin Sodium 1,000 Un/Ml (10ml Vl) IV 4,000 unit PER PROTOCOL PRN Administration Low PTT Protocol Heparin Sodium/Sodium Chloride 250 mls @ 9.906 mls/hr 02/26/21 14:00 02/27/21 10:22 25,000 unit/ Sodium Chloride IV 15 units/kg/hr .Q24H [facility] 12.383 mls/hr Administration Protocol 12 UNITS/KG/HR Sodium Chloride 1,000 mls @ 100 mls/hr 02/27/21 09:00 02/27/21 09:01 Saline 0.9% IV 100 mls/hr .Q10H [facility] Administration Morphine Sulfate 4 mg 02/26/21 14:35 Morphine Sulfate 4 Mg/Ml Syringe IV Q4HR PRN Severe Pain Naloxone HCl 0.2 mg 02/26/21 14:35 Naloxone 0.4 Mg/Ml 1 Ml Vial IV Q2M PRN Opioid Reversal Regadenoson 0.4 mg 02/27/21 09:00 Regadenoson 0.4 Mg/5 Ml Syringe IV 02/27/21 13:01 ONCE PRN Per Protocol Intake and Output 02/26/21 02/27/21 02/27/21 22:59 06:59 14:59 Intake Total 72.809 73.472 80.49 Balance 72.809 73.472 80.49 Intake: Intake, IV Titration 72.809 73.472 80.49 Amount Heparin Sod,Pork in 0.45% 72.809 73.472 80.49 NaCl 25,000 unit In 0.45 % NaCl 1 250ml.bag @ 12 UNITS/KG/HR 9.906 mls/hr IV .Q24H [facility] Rx#: [id number] Other: Voiding Method Toilet Toilet Toilet # Voids 2 2 Weight 82.554 kg 02/27/21 03:06 02/26/21 12:12
[2021-02-27 15:12] VITALS: RESP 18
--- NOTE | 2021-02-27 15:12 | P.PN ---
Subjective Progress Note Date: 02/27/21 51-year-old the male came in with complaints of chest pain constant exertional on the left side of the chest x-ray episodes with the lightheadedness and some diaphoresis denied any shortness of breath. Patient had food poisoning and gastroenteritis leading to nausea and vomiting for the last few days because of which patient is dehydrated and patient was found to have creatinine of 2.30. Patient used to smoke 2 packs of cigarettes per day has been smoking about half a pack a day. Patient chest pain sharp in nature nonradiating. Nonpleuritic not associated with food. Patient denied any exertional dyspnea. Patient follows up with Dr. Daniels because of uncontrolled blood pressure and patient is supposed to get an outpatient stress test. Patient was never worked up for coronary artery disease in the past. 02/27/2021 Patient is evaluated since the bedside, he is sitting up. Patient denies any chest pain, cough, shortness of breath. Patient denies any heartburn, nausea vomiting, abdominal pain. Patient is currently on a heparin drip and evaluated by cardiology services. Patient is planned for an echocardiogram, Lexiscan stress test tomorrow. Creatinine yesterday was 2.3, this appears to be a cue patient has been continued on IV fluids, pending repeat labs today. Patient's heart rate remains sinus bradycardia today, 43, carvedilol dose has been decreased yesterday. Blood pressure is 126/68, 97% on room air. Patient is requesting a diet for today. Patient has recurrent other day smoker, history of hypertension and high cholesterol. All medications have been resumed as juan ropriate. ROS: Constitutional: Denied any fatigue denied any fever. Cardio vascular: denied any chest pain, palpitations Gastrointestinal denied any nausea vomiting Pulmonary: Denied any shortness of breath cough Neurologic denied any new focal deficits All inpatient medications were reviewed and appropriate changes in these medications as dictated in the interval history and assessment and plan. PHYSICAL EXAMINATION: GENERAL: The patient is alert and oriented x3, not in any acute distress. Well developed, well nourished. HEENT: Pupils are round and equally reacting to light. EOMI. No scleral icterus. No conjunctival pallor. Normocephalic, atraumatic. No pharyngeal erythema. No thyromegaly. CARDIOVASCULAR: S1 and S2 present. No murmurs, rubs, or gallops. PULMONARY: Chest is clear to auscultation, no wheezing or crackles. ABDOMEN: Soft, nontender, nondistended, normoactive bowel sounds. No palpable organomegaly. MUSCULOSKELETAL: No joint swelling or deformity. EXTREMITIES: No cyanosis, clubbing, or pedal edema. NEUROLOGICAL: Gross neurological examination did not reveal any focal deficits. SKIN: No rashes. Assessment and plan -Chest pain, rule out acute coronary syndromes, troponin negative 3, will have Lexiscan tomorrow morning. -Acute renal failure prerenal azotemia probably from dehydration intravascular depletion patient previous creatinine was within normal limits, patient will be started on IV fluids, labs pending. -Metabolic acidosis commendation of noniron gap and an anion gap metabolic a cidosis non-anion gap is secondary to hyperchloremia anion gap is probably from lactic acidosis from dehydration for which patient will receive IV fluids as mentioned above, -Hypertension, losartan on hold -Hyperlipidemia - nicotine use: Counseling was provided DVT prophylaxis: Patient is on heparin at this time Echocardiogram is currently pending at this time, patient is scheduled for an Lexiscan stress test tomorrow morning. -Patient will be nothing by mouth after midnight, continue on heparin drip. Labs are pending from today, replace electrolytes as needed. Objective - Vital Signs Vital signs: Vital Signs Temp 98.2 F 02/27/21 07:00 Pulse 43 L 02/27/21 07:00 Resp 16 02/27/21 07:00 BP 126/68 02/27/21 07:00 Pulse Ox 97 02/27/21 07:00 Intake & Output 02/26/21 02/27/21 02/27/21 18:59 06:59 18:59 Intake Total 146.281 Balance 146.281 Weight 82.554 kg Intake: Intake, IV Titration 146.281 Amount Heparin Sod,Pork in 0.45% 146.281 NaCl 25,000 unit In 0.45 % NaCl 1 250ml.bag @ 12 UNITS/KG/HR 9.906 mls/hr IV .Q24H [facility] Rx#: [id number] Other: Voiding Method Toilet Toilet # Voids 2 - Labs CBC & Chem 7: 02/27/21 03:06 02/26/21 12:12 Labs: Abnormal Lab Results - Last 24 Hours (Table) 08/06/0802/26/21 02/26/21 Range/Units 12:12 12:12 12:12 WBC 11.3 H (3.8-10.6) k/uL APTT 20.8 L (22.0-30.0) sec Chloride 110 H (98-107) mmol/L Carbon Dioxide 13 L (22-30) mmol/L BUN 28 H (9-20) mg/dL Creatinine 2.30 H (0.66-1.25) mg/dL Glucose 117 H (74-99) mg/dL Calcium 11.0 H (8.4-10.2) mg/dL 02/27/21 Range/Units 03:06 WBC (3.8-10.6) k/uL APTT 47.6 H (22.0-30.0) sec Chloride (98-107) mmol/L Carbon Dioxide (22-30) mmol/L BUN (9-20) mg/dL Creatinine (0.66-1.25) mg/dL Glucose (74-99) mg/dL Calcium (8.4-10.2) mg/dL
--- NOTE | 2021-02-27 17:15 | ECHOF ---
Referral Reason:Chest pain MEASUREMENTS -------- HEIGHT: 180.3 cm WEIGHT: 82.6 kg BP: RVIDd: 3.3 cm (< 3.3) IVSd: 1.2 cm (0.6 - 1.1) LVIDd: 4.7 cm (3.9 - 5.3) LVPWd: 1.3 cm (0.6 - 1.1) IVSs: 2.1 cm LVIDs: 1.5 cm LVPWs: 2.0 cm LAESV Index (A-L): 28.19 ml/m Ao Diam: 3.4 cm (2.0 - 3.7) AV Cusp: 2.4 cm (1.5 - 2.6) LA Diam: 4.1 cm (2.7 - 3.8) MV EXCURSION: 14.924 mm (> 18.000) MV EF SLOPE: 97 mm/s (70 - 150) EPSS: 0.6 cm MV E Abdirashid: 0.75 m/s MV DecT: 198 ms MV A Abdirashid: 0.61 m/s MV E/A Ratio: 1.23 RAP: 5.00 mmHg RVSP: 10.09 mmHg FINDINGS -------- This was a technically difficult study with suboptimal views. The left ventricular size is normal. There is mild concentric left ventricular hypertrophy. Overa ll left ventricular systolic function is normal with, an EF between 55 - 60 %. The diastolic fillin g pattern is normal for the age of the patient 7.40. The right ventricle is mildly enlarged. The left atrial size is normal. Normal LA size by volume 22+/-6 ml/m2. The right atrial size is normal. 5.0mg of Lumason was utilized for enhancement of images The aortic valve is trileaflet and appears structurally normal. The mitral valve is normal. There is trace mitral regurgitation. The tricuspid valve appears structurally normal. Trace tricuspid regurgitation present. Right evette tricular systolic pressure is normal at < 35 mmHg. Trace/mild (physiologic) pulmonic regurgitation. The aortic root size is normal. IVC Not well visulized. There is no pericardial effusion. CONCLUSIONS -------- 1. The left ventricular size is normal. 2. There is mild concentric left ventricular hypertrophy. 3. Overall left ventricular systolic function is normal with, an EF between 55 - 60 %. 4. The diastolic filling pattern is normal for the age of the patient 7.40 5. The right ventricle is mildly enlarged. 6. There is trace mitral regurgitation. 7. Trace tricuspid regurgitation present. 8. Trace/mild (physiologic) pulmonic regurgitation. 9. There is no pericardial effusion. TECHNOLOGY AND ENGINEERING TEACHER: Annelise Booker RDCS
[2021-02-27] MEDS: ATORVASTATIN 40 MG TAB PO SCH (20:27)
[2021-02-28 00:30] LABS: African American GFR (CKD) 79.5 (60.0-200.0); Albumin 3.7 g/dL (3.80-4.90); Albumin/Globulin Ratio 1.61 (1.60-3.17); Anion Gap 9.6 mmol/L (4.00-12.00); BUN/Creat Ratio 20.83 Ratio (12.00-20.00); Calcium 8.6 mg/dL (8.7-10.3); Carbon Dioxide 14.4 mmol/L (21.6-31.8); Globulin 2.3 g/dL (1.6-3.3); Non-African American GFR(CKD) 68.6 (60.0-200.0); Potassium 3.5 mmol/L (3.5-5.5); Total Bilirubin 0.3 mg/dL (0.2-1.2)
[2021-02-28] MEDS: SODIUM CHLORIDE 0.9% 1,000 ML IV SCH ×2 (05:51→13:00)
[2021-02-28] MEDS: HEPARIN SODIUM 1,000 UN/ML (10ML VL) IV PRN (06:45)
[2021-02-28 07:56] VITALS: BP 145/76; PULSE 48; TEMP 97.8
[2021-02-28] MEDS: carvediloL 6.25 MG TAB PO SCH (08:48)
[2021-02-28] MEDS: amLODIPine 10 MG TAB PO SCH (08:52)
[2021-02-28] MEDS: HEPARIN SOD,PORK IN 0.45% NACL 25,000 UNIT in 0.45% NACL 1 250ML.BAG IV SCH (08:52)
[2021-02-28] MEDS: ASPIRIN 81 MG PO SCH (08:52)
--- NOTE | 2021-02-28 10:48 | P.PN ---
Subjective Progress Note Date: 02/28/21 HISTORY OF PRESENT ILLNESS: This is a pleasant 51-year-old with past medical history significant for Hypertension, tobacco abuse, mild carotid atherosclerosis, mild mitral regurgita tion. He was recently seen 12/2020 by Christa in the office and had valsartan started. Patient had been doing fairly well up until yesterday. Patient was at work when he started feeling a sharp stabbing chest pain on the left side of his chest and also started feeling lightheaded and somewhat diaphoretic. 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 He knew he is not feeling well and therefore presented to emergency department. He was given aspirin and morphine and admits the pain did subside while in the emergency department. Blood work showed mild leukocytosis 11.3, hemoglobin 15.1, bicarb 13, new HPI with BUN 28, creatinine 2.3 with baseline creatinine 0.8 from September 2020, calcium 11.0, troponins normal 3, AST, ALT normal. Coronavirus was normal. EKG showed normal sinus rhythm without ST or T-wave abnormalities. Patient's blood pressure has been well-controlled. He denies any further recurrence of chest pain. He does admit to taking small amounts of Motrin however this is nothing new.. His losartan has been held secondary to acute kidney injury. His last echocardiogram was from October 2020 which showed ejection fraction 60%, normal diastolic function, mild LVH, mild mitral regurgitation. 02/28/2021 Patient examined this morning at the bedside. Patient denies any further episodes of chest pain. He denies any shortness of breath. Blood pressure 145/76. Creatinine today 1.2, down from 2.30 yesterday. Echocardiogram completed revealed ejection fraction 55-60%. Trace mitral regurgitation. Trace tricuspid regurgitation. PHYSICAL EXAM: VITAL SIGNS: Reviewed. GENERAL: Well-developed in no acute distress. NECK: Supple. No JVD or thyromegaly LUNGS: Respirations even and unlabored. Lungs essentially clear to auscultation bilaterally. HEART: Regular rate and rhythm. S1 and S2 heard. EXTREMITIES: Normal range of motion. No clubbing or cyanosis. Peripheral pulses intact. No lower extremity edema ASSESSMENT: 1. New onset of chest pain, lightheadedness, shortness of breath and diapho resis while working out in the hot sun, troponins normal 3 2. Acute kidney injury, resolved 3. Metabolic acidosis 4. Asymptomatic sinus bradycardia 5. Tobacco abuse 6. Mild mitral regurgitation PLAN: Resume Losartan tomorrow as RHONDA has resolved Smoking cessation encouraged Patient to undergo Missy scan stress test today. If negative, he may be discharged home today from a cardiac standpoint Nurse practitioner note has been reviewed by physician. Signing provider agrees with the documented findings, assessment, and plan of care. Objective - Vital Signs Vital signs: Vital Signs Temp 97.8 F 02/28/21 07:00 Pulse 48 L 02/28/21 07:00 Resp 18 02/28/21 07:00 BP 145/76 02/28/21 07:00 Pulse Ox 99 02/28/21 07:00 Intake & Output 02/27/21 02/28/21 02/28/21 18:59 06:59 18:59 Intake Total 80.49 1450 Balance 80.49 1450 Intake: IV 1200 Sodium Chloride 0.9% 1, 1200 000 ml @ 100 mls/hr IV . Q10H [facility] Rx#:[id number] Intake, IV Titration 80.49 250 Amount Heparin Sod,Pork in 0.45% 80.49 250 NaCl 25,000 unit In 0.45 % NaCl 1 250ml.bag @ 12 UNITS/KG/HR 9.906 mls/hr IV .Q24H [facility] Rx#: [id number] Other: Voiding Method Toilet Toilet # Voids 1 2 - Labs CBC & Chem 7: 02/27/21 03:06 02/27/21 03:06 Labs: Abnormal Lab Results - Last 24 Hours (Table) 02/27/21 02/27/21 02/28/21 Range/Units 03:06 03:06 04:52 RBC 4.09 L (4.40-5.60) X 10*6/uL Hgb 12.5 L (13.0-17.0) g/dL Hct 37.3 L (39.6-50.0) % MPV 13.9 H (9.5-12.2) fL APTT 38.2 H (22.0-30.0) sec Chloride 116 H (96-109) mmol/L Carbon Dioxide 14.4 L (21.6-31.8) mmol/L BUN/Creatinine Ratio 20.83 H (12.00-20.00) Ratio Calcium 8.6 L (8.7-10.3) mg/dL Total Protein 6.0 L (6.2-8.2) g/dL Albumin 3.70 L (3.80-4.90) g/dL
--- NOTE | 2021-02-28 12:23 | NM ---
EXAMINATION TYPE: NM stress lexiscan cardiolite DATE OF EXAM: 02/28/2021 COMPARISON: NONE HISTORY: Chest pain TECHNIQUE: After the intravenous administration of 9.8 mCi Tc 99m Sestamibi - Cardiolite resting SPE CT images acquired 60 minutes post injection. The patient received 0.4mg Lexiscan, 25.8 mCi Tc 99m Sestamibi - Stress images obtained [address] injection FINDINGS: Review of stress and rest SPECT images demonstrates suggestion of possible area of stress-induced rev ersibility involving the lateral myocardium.. Gated analysis shows normal wall motion with an estima lily left ventricular ejection fraction of 64 %. IMPRESSION: 1. Correlate for small area of stress-induced reversible ischemia involving the lateral myocardium.
[2021-02-28] MEDS ORDERED: REGADENOSON 0.4 MG/5 ML SYRINGE IV ONE (13:00)
--- NOTE | 2021-02-28 14:38 | P.DS ---
Providers Date of admission: 02/27/21 21:59 Attending physician: Georgiana Bejarano Consults: 02/26/21 14:00 Consult Physician Urgent Consulting Provider: Paxton Parisi Reason/Comments: chest pain Do you want consulting provider notified?: Already Contacted Primary care physician: [facility] Course: Final diagnoses Acute exertional chest pain, possibility of stress-induced reversible ischemia on Lexiscan, medical management, follow-up with cardiology Acute kidney injury, resolved Metabolic acidosis, improved, follow-up PCP Asymptomatic sinus bradycardia, continue on carvedilol Tobacco abuse, denied nicotine patch Mild mitral regurgitation, follow-up cardiology Discharge disposition Patient is discharged home with self-care. Patient will follow-up with cardiology services in the office. Patient was recommended for intervention due to a possibility of stress-induced reversible ischemia found on a Lexiscan stress today. Patient opted for medical management. Patient will continue on all cardiac medications and follow-up in the office of cardiology, and PCP. Hospital course This is a 51-year-old male who came in with complaints of chest pain, constant in nature, exertional on the left side. Chest x-ray negative for any acute process. Echocardiogram revealed an ejection fraction of 55-60%, trace mitral regurgitation, trace tricuspid regurgitation, trace mild physiologic pulmonic regurgitation. Creatinine was 2.3 on admission, improved to 1.2 with IV hydration. Suspect acute kidney injury. Patient has a mild metabolic acidosis, improving. Patient was evaluated by cardiology services who recommended a stress test. Patient underwent a Lexiscan stress test today, which was suggestive for possible area of stress-induced reversibility involving the lateral myocardium. Troponins negative 3. CBC, revealed hemoglobin of 12.5, temperature panel revealed a potassium of 3.5 today. All other levels are within normal limits. Patient has been counseled on smoking cessation. Patient did not wish to undergo intervention, requested to be medical management via cardiology services. Cardiology has cleared this patient for discharge on all current cardiac medications. Vital signs have remained stable this admission, temp 97.8, sinus bradycardia asymptomatic 46-49. Patient denies chest pain, cough, shortness of breath. 02/28/2021 Patient is evaluated at the bedside today, denies chest pain, cough, shortness of breath. Patient is post Lexiscan. Patient is discharged from cardiology services today. Vital signs are stable. Patient's lung sounds are clear to auscultation, S1-S2, regular rate and rhythm. Negative for lower extremity edema. Patient will be discharged home, and can follow up with cardiology and PCP. 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 Please see medication reconciliation for list of current medications. Patient Condition at Discharge: Fair Plan - Discharge Summary Discharge Rx Participant: Yes New Discharge Prescriptions: Continue Aspirin [Adult Low Dose Aspirin EC] 81 mg PO DAILY Ergocalciferol [Vitamin D2 (1250 Mcg = 12407 Iu)] 1,250 mcg PO MO amLODIPine [Norvasc] 10 mg PO DAILY Atorvastatin [Lipitor] 40 mg PO HS Carvedilol [Coreg] 6.25 mg PO BID Losartan Potassium 100 mg PO DAILY Discharge Medication List Aspirin [Adult Low Dose Aspirin EC] 81 mg PO DAILY 11/04/20 [History] Atorvastatin [Lipitor] 40 mg PO HS 11/04/20 [History] amLODIPine [Norvasc] 10 mg PO DAILY 11/04/20 [History] Carvedilol [Coreg] 6.25 mg PO BID 02/26/21 [History] Ergocalciferol [Vitamin D2 (1250 Mcg = 43962 Iu)] 1,250 mcg PO MO 02/26/21 [History] Losartan Potassium 100 mg PO DAILY 02/26/21 [History] Follow up Appointment(s)/Referral(s): Krishna Koch DO [STAFF PHYSICIAN] - 03/11/21 9:45 am Gertrude Chacko MD [Primary Care Provider] - 1-2 days Patient Instructions/Handouts: Chest Pain (DC), Bradycardia (DC) Activity/Diet/Wound Care/Special Instructions: Activity Limited until follow up with costume director Continue with a heart healthy diet Discharge Disposition: HOME SELF-CARE
--- NOTE | 2021-02-28 16:39 | P.STRESS ---
- Stress Test Note Stress Test Results/Findings: Exam Performed: NM stress lexiscan cardiolite Exam Date: 02/28/21 Reason for Exam: Chest Pain Height: 6 ft Weight: 82.55 kg Protocol: Lexiscan Stage: na Duration of Exercise: na Resting Heart Rate: 51 Resting Blood Pressure: 155/69 Maximum Achieved Heart Rate: 91 Maximum Achieved Blood Pressure: 160/69 85% PMHR: 142 100% PMHR: 167 METS: na Technologist Comment: Stress Test Results/Findings: At baseline EKG showed normal sinus rhythm, normal axis, no significant ST or T- wave abnormalities. Patient recieved IV infusion of Lexiscan 0.4mg and at peak infusion EKG showed no significant change from baseline. Conclusions: 1. Normal EKG response to Lexiscan infusion 2. Nuclear imaging to be reported separately.
[2021-03-01] MEDS ORDERED: LOSARTAN 50 MG TAB PO SCH (09:00)
== END 2021-02-28 14:16 | disposition home or self-care (01) | DRG 311 ==
LOC: EC 12:05 → 6NMEDSUR 14:37 → OBSVTOIN 02-27 21:59
PROVIDERS: ADMIT Internal Medicine; ATTEND Internal Medicine
DX: I24.8 Other forms of acute ischemic heart disease (principal); N17.9 Acute kidney failure, unspecified; E87.2 Acidosis; E87.8 Other disorders of electrolyte and fluid balance, not elsewhere classified; Z20.822 Contact with and (suspected) exposure to COVID-19; E83.52 Hypercalcemia; R00.1 Bradycardia, unspecified; E86.0 Dehydration; E86.9 Volume depletion, unspecified; E78.5 Hyperlipidemia, unspecified; E78.00 Pure hypercholesterolemia, unspecified; D72.829 Elevated white blood cell count, unspecified; I34.0 Nonrheumatic mitral (valve) insufficiency; F17.210 Nicotine dependence, cigarettes, uncomplicated; Z71.6 Tobacco abuse counseling; I10 Essential (primary) hypertension; Z79.82 Long term (current) use of aspirin; Z79.899 Other long term (current) drug therapy; I65.29 Occlusion and stenosis of unspecified carotid artery
CPT/HCPCS: 36415; 71046; 78452; 80053; 83735; 84484; 85025; 85610; 85730; 87635; 93005; 93017; 93306; 96374; 96375; 99285

== ENCOUNTER 2023-07-31 14:31 | Emergency (ER) | payer OTHER ==
--- NOTE | 2023-07-31 15:01 | ED ---
General Adult HPI - General Source: patient, RN notes reviewed Mode of arrival: ambulatory Limitations: no limitations <Whit See - Last Filed: 07/31/23 14:59> <Chavez Mari - Last Filed: 07/31/23 17:59> - General Chief complaint: Chest Pain Stated complaint: fall chest pain Time Seen by Provider: 07/31/23 14:59 - History of Present Illness Initial comments: This is a 53 year old male who presents to the emergency department for a chest wall injury. States that he tripped and fell onto a wheelbarrow and injured his chest. He is now experiencing sharp pain that is worse with inhalation. (Whit See) 53-year-old male presents to the ED with a chief complaint chest pain. Patient states yesterday was going up an incline pushing a wheelbarrow when he backed his shoe got caught on a piece of wood causing him to fall forward onto the edge of the wheelbarrow. States landed across his upper chest. Now notes that he is having a cough or sneeze has pain of the place he hit. Also notes increased pain with deep breath. Otherwise states no chest pain. No shortness of breath. No abdominal pain. No other complaints. (Chavez Mari) - Related Data Home Medications Medication Instructions Recorded Confirmed Aspirin [Adult Low Dose Aspirin EC] 81 mg PO DAILY 11/04/20 02/26/21 Atorvastatin [Lipitor] 40 mg PO HS 11/04/20 02/26/21 amLODIPine [Norvasc] 10 mg PO DAILY 11/04/20 02/26/21 Ergocalciferol [Vitamin D2 (1250 1,250 mcg PO MO 02/26/21 02/26/21 Mcg = 66443 Iu)] Losartan Potassium 100 mg PO DAILY 02/26/21 02/26/21 carvediloL [Coreg] 6.25 mg PO BID 02/26/21 02/26/21 Allergies Allergy/AdvReac Type Severity Reaction Status Date / Time No Known Allergies Allergy Verified 02/26/21 13:53 Review of Systems ROS Other: All systems not noted in ROS Statement are negative. <Whit See - Last Filed: 07/31/23 14:59> ROS Other: All systems not noted in ROS Statement are negative. <Chavez Mari - Last Filed: 07/31/23 17:59> ROS Statement: Those systems with pertinent positive or pertinent negative responses have been documented in the HPI. Past Medical History Past Medical History: Hyperlipidemia, Hypertension History of Any Multi-Drug Resistant Organisms: None Reported Past Surgical History: No Surgical Hx Reported Past Anesthesia/Blood Transfusion Reactions: No Reported Reaction Past Psychological History: No Psychological Hx Reported Smoking Status: Current every day smoker <Whit See - Last Filed: 07/31/23 14:59> General Exam Limitations: no limitations <Whit See - Last Filed: 07/31/23 14:59> General appearance: alert, in no apparent distress Eye exam: Present: normal appearance Neck exam: Present: normal inspection Respiratory exam: Present: normal lung sounds bilaterally, other (Reducible upper chest wall tenderness to palpation across her chest. No bruising or overlying skin changes.) Cardiovascular Exam: Present: regular rate, normal rhythm GI/Abdominal exam: Present: soft (No tenderness to palpation. No rebound guarding or rigidity. No overlying skin changes) Neurological exam: Present: alert, oriented X3 Skin exam: Present: warm, dry <Chavez Mari - Last Filed: 07/31/23 17:59> - General Exam Comments Initial Comments: Visual Physical Exam Vital signs reviewed General: Well-appearing, nontoxic, no acute distress. Head: Normocephalic, atraumatic Eyes: PERRLA, EOMI ENT: Airway patent Chest: Nonlabored breathing Skin: No visual rash, normal skin tone Neuro: Alert and oriented 3 Musculoskeletal: No gross abnormalities (Whit See) Course Vital Signs 07/31/23 07/31/23 14:34 17:53 Temperature 98.6 F 97.7 F Pulse Rate 74 58 L Respiratory 20 18 Rate Blood Pressure 165/85 183/96 O2 Sat by Pulse 98 98 Oximetry Medical Decision Making <Whit See - Last Filed: 07/31/23 14:59> <Chavez Mari - Last Filed: 07/31/23 17:59> - Medical Decision Making I performed the QuickNote portion of this chart. Signed Whit See PA-C. (Whit See) Was pt. sent in by a medical professional or institution (PATRIZIA Costa, PALM GATHERER, urgent care, hospital, or halfway...) When possible be specific @ -No Did you speak to anyone other than the patient for history (EMS, parent, family, police, friend...)? What history was obtained from this source @ -No Did you review nursing and triage notes (agree or disagree)? Why? @ -I reviewed and agree with nursing and triage notes Were old charts reviewed (outside hosp., previous admission, EMS record, old EKG, old radiological studies, urgent care reports/EKG's, halfway records)? Report findings @ -No old charts were reviewed Differential Diagnosis (chest pain, altered mental status, abdominal pain women, abdominal pain men, vaginal bleeding, weakness, fever, dyspnea, syncope, headache, dizziness, GI bleed, back pain, seizure, CVA, palpatations, mental health, musculoskeletal)? @ -Differential Chest Pain: Stable Angina, Unstable Angina, STEMI, NSTEMI Aortic Dissection, Pneumothorax, Musculoskeletal, Esophageal Spasm GERD, Cholecystitis, Pancreatitis, Zoster, this is not meant to be an all-inclusive list. EKG interpreted by me (3pts min.). @ -EKG shows a normal sinus rhythm at [address]-T wave changes. ME 174, QRS 100, QT/QTc 376/381. X-rays interpreted by me (1pt min.). @ -Chest x=ray interpreted by me shows no evidence of fracture or other acute findings. CT interpreted by me (1pt min.). @ -None done U/S interpreted by me (1pt. min.). @ -None done What testing was considered but not performed or refused? (CT, X-rays, U/S, labs)? Why? @ -None What meds were considered but not given or refused? Why? @ -None Did you discuss the management of the patient with other professionals (professionals i.e. PATRIZIA Costa, PALM GATHERER, lab, RT, psych nurse, director of social work, poured pipe maker, teacher, chief strategy officer, residential case manager)? Give summary @ -No Was smoking cessation discussed for >3mins.? @ -No Was critical care preformed (if so, how long)? @ -No Were there social determinants of health that impacted care today? How? (Homelessness, low income, unemployed, alcoholism, drug addiction, transportation, low edu. Level, literacy, decrease access to med. care, penitentiary, rehab)? @ -No Was there de-escalation of care discussed even if they declined (Discuss DNR or withdrawal of care, Hospice)? DNR status @ -No What co-morbidities impacted this encounter? (DM, HTN, Smoking, COPD, CAD, Canc er, CVA, ARF, Chemo, Hep., AIDS, mental health diagnosis, sleep apnea, morbid obesity)? @ -None Was patient admitted / discharged? Hospital course, mention meds given and route, prescriptions, significant lab abnormalities, going to OR and other pertinent info. @ -Discharged 53-year-old male presenting to the ED with a chief complaint of chest pain after mechanical trip and fall yesterday and revealed improving his chest wall. Patient has reproducible pain to palpation across his upper chest wall. No other skin changes on exam. No abdominal TTP. EKG showed a normal sinus rhythm without acute ST-T wave changes. Symptoms likely musculoskeletal in nature. Provided Toradol. Advised supportive long-term. Discharged home in stable condition. Discussed return precautions patient verbalizes agreement. Undiagnosed new problem with uncertain prognosis? @ -No Drug Therapy requiring intensive monitoring for toxicity (Heparin, Nitro, Insulin, Cardizem)? @ -No Were any procedures done? @ -No Diagnosis/symptom? @ -Chest wall contusion Acute, or Chronic, or Acute on Chronic? @ -Acute Uncomplicated (without systemic symptoms) or Complicated (systemic symptoms)? @ -Uncomplicated Side effects of treatment? @ -No Exacerbation, Progression, or Severe Exacerbation? @ -No Poses a threat to life or bodily function? How? (Chest pain, [place], [place], pneumonia, PE, COPD, DKA, ARF, appy, cholecystitis, CVA, Diverticulitis, Homicidal, Suicidal, threat to staff... and all critical care pts) @ -No (Chavez Mari) Disposition <Whit See - Last Filed: 07/31/23 14:59> Is patient prescribed a controlled substance at d/c from ED?: No Time of Disposition: 17:59 <Chavez Mari - Last Filed: 07/31/23 17:59> Clinical Impression: Chest wall contusion Disposition: HOME SELF-CARE Condition: Good Additional Instructions: Please return to the Emergency Department if symptoms worsen or any other concerns. Follow up with your PCP. Referrals: Gertrude Chacko MD [Primary Care Provider] - 1-2 days
--- NOTE | 2023-07-31 16:00 | XR ---
EXAMINATION TYPE: XR chest 2V DATE OF EXAM: 07/31/2023 3:02 PM CLINICAL INDICATION:Male, 53 years old with history of pin to chest with cough post fall; [facility] COMPARISON: None TECHNIQUE: XR chest 2V. Frontal and lateral views of the chest.. FINDINGS: Lines/Tubes/Devices: No indwelling lines are seen. Heart/mediastinum: Heart appears mildly enlarged. Mediastinum appears normal. Pulmonary vascularity: Not increased, Lungs/Pleura: Low lung volumes are present with mild strandy atelectasis in the right more than left lung base. There is no evidence of pleural effusion, focal consolidation, or pneumothorax. Musculoskeletal: No acute osseous abnormality demonstrated in the limits of the exam. Degenerative c hanges of the spine and shoulders. Other findings: None. IMPRESSION: Low lung volume exam with hypoventilatory changes. Otherwise no acute finding.
[2023-07-31] MEDS ORDERED: KETOROLAC 15 MG/ML 1 ML VIAL IM STA (17:42)
[2023-07-31 17:54] VITALS: BP 183/96; PULSE 58; RESP 18; TEMP 97.7
== END 2023-07-31 18:15 | disposition home or self-care (01) ==
LOC: EC 14:31
DX: S20.219A Contusion of unspecified front wall of thorax, initial encounter (principal); I10 Essential (primary) hypertension; E78.5 Hyperlipidemia, unspecified; F17.200 Nicotine dependence, unspecified, uncomplicated; Z79.82 Long term (current) use of aspirin; Z79.899 Other long term (current) drug therapy; W01.0XXA Fall on same level from slipping, tripping and stumbling without subsequent striking against object, initial encounter
CPT/HCPCS: 99285; 93005; 71046; 96372; J1885

== ENCOUNTER → 2023-10-07 | Outpatient (CLI) | payer OTHER ==
[2023-10-08 02:52] LABS: ALT 30 U/L (10-49); AST 22 U/L (14-35); Chol/HDL Ratio 4.12 Ratio; LDL Cholesterol,Calculated 135.7 mg/dL (0.0-131.0); VLDL Calculation 17.98 mg/dL (5.00-40.00)
== END | disposition home or self-care (01) ==
LOC: LABWHC1 15:50
PROVIDERS: ATTEND Internal Medicine Interventional Cardiology
DX: E78.00 Pure hypercholesterolemia, unspecified (principal)
CPT/HCPCS: 36415; 80061; 84450; 84460

== ENCOUNTER → 2023-10-07 | Outpatient (CLI) | payer OTHER ==
--- NOTE | 2023-10-08 04:30 | CT ---
EXAMINATION TYPE: CT angio chest DATE OF EXAM: 10/07/2023 COMPARISON: NONE HISTORY: thoracic aneurysm CT DLP: 1071 mGycm. Automated Exposure Control for Dose Reduction was Utilized. CONTRAST: CTA scan of the thorax is performed with IV Contrast, patient injected with 100 mL of Isovue 370, ane urysm protocol. 3D reconstructed images are created on an independent workstation and reviewed. FINDINGS: LUNGS: Dependent opacity along the fissures and posteriorly favors atelectasis. No suspicious focal consolidation. There is no pleural effusion or pneumothorax seen. The tracheobronchial tree is paten t. MEDIASTINUM: Noncontrast images show no suspicious hyperdense material to suggest intramural hematoma . Aorta at the root measures 3.8 cm in diameter coronal image 78. Aorta measures 3.8 cm at the level of main pulmonary artery axial image 56. Normal three-vessel origin from the aortic arch with mild p eripheral plaque but no significant stenosis. No aneurysm in the arch or descending aorta. There are no greater than 1 cm hilar or mediastinal lymph nodes. No cardiomegaly or pericardial effusion is s een. OTHER: Small degree of flame-shaped left-sided subareolar gynecomastia. IMPRESSION: 1. 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
== END | disposition home or self-care (01) ==
LOC: RADCTMAIN 15:11
PROVIDERS: ATTEND Internal Medicine Interventional Cardiology
DX: I71.21 Aneurysm of the ascending aorta, without rupture (principal)
CPT/HCPCS: 71275; Q9967

== ENCOUNTER 2024-02-03 09:25 | Emergency (ER) | payer SELFPAY ==
[2024-02-03 09:36] VITALS: RESP 18
[2024-02-03] MEDS: LIDOCAINE 1%-EPI 1:100,000 20 ML VIAL SQ STA (10:20)
[2024-02-03] MEDS: DIPH,PERTUS(ACELL)TETVAC-LF 0.5 ML VIAL IM ONE (10:20)
--- NOTE | 2024-02-03 11:05 | ED ---
General Adult HPI - General Chief complaint: Wound/Laceration Stated complaint: arm lac Time Seen by Provider: 02/03/24 10:04 Source: patient, RN notes reviewed Mode of arrival: ambulatory Limitations: no limitations - History of Present Illness Initial comments: 54-year-old male presents to the emergency department for evaluation of laceration on his left forearm. 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 He states that he covered the wound and wrapped it in duct tape. He is able to move his arm, wrist, hand without limitations. He is unsure when his last tetanus vaccine was. - Related Data Home Medications Medication Instructions Recorded Confirmed Aspirin [Adult Low Dose Aspirin EC] 81 mg PO DAILY 11/04/20 02/26/21 Atorvastatin [Lipitor] 40 mg PO HS 11/04/20 02/26/21 amLODIPine [Norvasc] 10 mg PO DAILY 11/04/20 02/26/21 Ergocalciferol [Vitamin D2 (1250 1,250 mcg PO MO 02/26/21 02/26/21 Mcg = 69678 Iu)] Losartan Potassium 100 mg PO DAILY 02/26/21 02/26/21 carvediloL [Coreg] 6.25 mg PO BID 02/26/21 02/26/21 Allergies Allergy/AdvReac Type Severity Reaction Status Date / Time No Known Allergies Allergy Verified 02/03/24 09:35 Review of Systems ROS Statement: Those systems with pertinent positive or pertinent negative responses have been documented in the HPI. ROS Other: All systems not noted in ROS Statement are negative. Past Medical History Past Medical History: Hyperlipidemia, Hypertension History of Any Multi-Drug Resistant Organisms: None Reported Past Surgical History: No Surgical Hx Reported Past Anesthesia/Blood Transfusion Reactions: No Reported Reaction Past Psychological History: No Psychological Hx Reported Smoking Status: Current every day smoker Past Alcohol Use History: None Reported Past Drug Use History: None Reported General Exam Limitations: no limitations General appearance: alert, in no apparent distress Head exam: Present: atraumatic, normocephalic, normal inspection Eye exam: Present: normal appearance, PERRL, EOMI. Absent: scleral icterus, conjunctival injection, periorbital swelling Respiratory exam: Present: normal lung sounds bilaterally. Absent: respiratory distress, wheezes, rales, rhonchi, stridor Cardiovascular Exam: Present: regular rate, normal rhythm, normal heart sounds. Absent: systolic murmur, diastolic murmur, rubs, gallop, clicks Extremities exam: Present: full ROM, normal capillary refill, other (10 cm laceration to the left dorsal forearm). Absent: tenderness, pedal edema, joint swelling, calf tenderness Neurological exam: Present: alert, oriented X3 Psychiatric exam: Present: normal affect, normal mood Skin exam: Present: warm, dry, other (10 cm laceration to the left dorsal forearm). Absent: intact Course Vital Signs 02/03/24 02/03/24 09:33 11:17 Temperature 98.0 F 98 F Pulse Rate 66 62 Respiratory 18 18 Rate Blood Pressure 153/92 145/89 O2 Sat by Pulse 98 98 Oximetry Procedures - Laceration Laceration #1 Consent Obtained: verbal consent Indication: laceration Site: upper extremity Size (cm): 10 Description: linear Depth: simple, single layer Anesthetic Used: lidocaine 1%, with epi Amount (mls): 7 Pre-repair: wound explored, irrigated extensively Type of Sutures: other Size of Sutures: 4-0 Number of Sutures: 10 Technique: simple, interrupted Patient Tolerated Procedure: well, no complications Medical Decision Making - Medical Decision Making Was pt. sent in by a medical professional or institution (PATRIZIA Costa, PRESS OPERATOR, urgent care, hospital, or prison...) When possible be specific @ -No Did you speak to anyone other than the patient for history (EMS, parent, family, police, friend...)? What history was obtained from this source @ -No Did you review nursing and triage notes (agree or disagree)? Why? @ -I reviewed and agree with nursing and triage notes Were old charts reviewed (outside hosp., previous admission, EMS record, old EKG, old radiological studies, urgent care reports/EKG's, prison records)? Report findings @ -No old charts were reviewed Differential Diagnosis (chest pain, altered mental status, abdominal pain women, abdominal pain men, vaginal bleeding, weakness, fever, dyspnea, syncope, h eadache, dizziness, GI bleed, back pain, seizure, CVA, palpatations, mental health, musculoskeletal)? @ -Differential Musculoskeletal Muscular strain, contusion, ligament sprain, fracture, arthritis, septic arthritis, bursitis, cellulitis, muscle spasm, nerve compression, DVT, arterial occlusion, herpes zoster, electrolyte abnormality, tumor.... This is not meant to be in all inclusive list EKG interpreted by me (3pts min.). @ -None X-rays interpreted by me (1pt min.). @ -None done CT interpreted by me (1pt min.). @ -None done U/S interpreted by me (1pt. min.). @ -None done What testing was considered but not performed or refused? (CT, X-rays, U/S, labs)? Why? @ -None What meds were considered but not given or refused? Why? @ -None Did you discuss the management of the patient with other professionals (professionals i.e. DrJelena, PA, PRESS OPERATOR, lab, RT, psych nurse, social psychologist, automation machine builder, teacher, evp and chief operating officer, child welfare caseworker)? Give summary @ -No Was smoking cessation discussed for >3mins.? @ -No Was critical care preformed (if so, how long)? @ -No Were there social determinants of health that impacted care today? How? (Homelessness, low income, unemployed, alcoholism, drug addiction, transportation, low edu. Level, literacy, decrease access to med. care, long-term, rehab)? @ -No Was there de-escalation of care discussed even if they declined (Discuss DNR or withdrawal of care, Hospice)? DNR status @ -No What co-morbidities impacted this encounter? (DM, HTN, Smoking, COPD, CAD, Cancer, CVA, ARF, Chemo, Hep., AIDS, mental health diagnosis, sleep apnea, morbid obesity)? @ -None Was patient admitted / discharged? Hospital course, mention meds given and route, prescriptions, significant lab abnormalities, going to OR and other pertinent info. @ -Discharged. Patient presented to the emergency department for evaluation of left arm laceration. The wound was extensively irrigated and hematoma evacuated. Wound was repaired with sutures. Patient was instructed on acute wound care and suture removal time. He is understanding agreeable plan. Patient stable at time of discharge. Case discussed with Dr. Haq. Undiagnosed new problem with uncertain prognosis? @ -No Drug Therapy requiring intensive monitoring for toxicity (Heparin, Nitro, Insulin, Cardizem)? @ -No Were any procedures done? @ -Laceration repair Diagnosis/symptom? @ -Laceration Acute, or Chronic, or Acute on Chronic? @ -Acute Uncomplicated (without systemic symptoms) or Complicated (systemic symptoms)? @ -Uncomplicated Side effects of treatment? @ -No Exacerbation, Progression, or Severe Exacerbation? @ -No Poses a threat to life or bodily function? How? (Chest pain, [place], [place], pneumonia, PE, COPD, DKA, ARF, appy, cholecystitis, CVA, Diverticulitis, Homicidal, Suicidal, threat to staff... and all critical care pts) @ -No Disposition Clinical Impression: Laceration Disposition: HOME SELF-CARE Condition: Stable Instructions (If sedation given, give patient instructions): Care For Your Stitches (ED) Additional Instructions: Please follow up with your primary care provider. Keep wound clean and dry. Have stitches removed in around 10 days. Is patient prescribed a controlled substance at d/c from ED?: No Referrals: Gertrude Chacko MD [Primary Care Provider] - 1-2 days
[2024-02-03 11:20] VITALS: BP 145/89; PULSE 62; TEMP 98
== END 2024-02-03 11:32 | disposition home or self-care (01) ==
LOC: EC 09:25
DX: S51.812A Laceration without foreign body of left forearm, initial encounter (principal); F17.200 Nicotine dependence, unspecified, uncomplicated; Z23 Encounter for immunization; W26.8XXA Contact with other sharp object(s), not elsewhere classified, initial encounter; Y99.0 Civilian activity done for income or pay
CPT/HCPCS: 12004; 90471; 90715; 99282

== ENCOUNTER → 2024-07-26 | Outpatient (CLI) | payer BC ==
[2024-07-26 16:04] LABS: ALT 18 U/L (10-49); AST 19 U/L (14-35); LDL Cholesterol,Calculated 110.6 mg/dL (0.0-131.0)
== END | disposition home or self-care (01) ==
LOC: LABWHC1 10:34
PROVIDERS: ATTEND Internal Medicine Interventional Cardiology
DX: E78.00 Pure hypercholesterolemia, unspecified (principal)
CPT/HCPCS: 36415; 80061; 84450; 84460

== ENCOUNTER → 2024-10-09 | Outpatient (CLI) | payer BC ==
--- NOTE | 2024-10-09 09:04 | CTL ---
EXAMINATION TYPE: CT Low Dose Lung DATE OF EXAM: 10/09/2024 8:39 AM COMPARISON: 10/07/2023. CLINICAL INDICATION: Male, 54 years old with history of I10 HTN Z72.0 TOBACCO USE R25.2 LEG CRAMPS; c urrent smoker, 1 ppd x 40 years, no concerns, history of tobacco use. TECHNIQUE: Multiple axial non-contrast scans were obtained from approximately the lung apices through the upper abdomen. Coronal and sagittal reformatted images were obtained. Low dose technique was uti lized. MIP were created on a separate workstation and submitted for review. CT DLP: 89.70 mGycm, Automated exposure control for dose reduction was used. CT Contrast: Contrast used: None Oral contrast used: None FINDINGS: Lack of intravenous contrast and low dose technique limits the evaluation of the vascular and soft ti ssue structures. LUNGS: No evidence of pulmonary fibrosis. No evidence of focal consolidation, pneumothorax or pleural effusion. Centrilobular emphysema changes. Nodules: RUL: None. RML: None. RLL: 3 mm series 5 image 33.. WAN: None. LLL: None. AIRWAY: Patent and unremarkable. HEART: Size within normal limits. No significant coronary artery calcifications. MEDIASTINUM: No gross evidence of adenopathy. VASCULATURE: No aortic aneurysm. MUSCULOSKELETAL: Mild disc degeneration changes are present throughout the thoracolumbar spine. SOFT TISSUES/LYMPH NODES: Unremarkable. LOWER NECK: No significant findings. UPPER ABDOMEN: No significant findings. IMPRESSION: 1. No clinically significant pulmonary nodules. 2. Mild emphysema. CT LUNG RAD AND CT CHEST RECOMMENDATION: Lung-Rad 2 Benign Appearance or Behavior: Continue annual sc reening with LDCT in 12 months. S Modifier (other clinically significant findings): None Recommend smoking cessation (if current smoker), or continuation of smoking cessation (if prior smoke r). Annual screening for lung cancer with low-dose computed tomography is recommended in adults ages 55 to 77 years who have a 30 pack-year smoking history and currently smoke or have quit within the pa st 15 years. Screening should be discontinued once a person has not smoked for 15 years or develops a health problem that substantially limits life expectancy or the ability or willingness to have curat [place]io lung surgery. Lung rads 2021 [email or web address] [facility], , 10/09/2024 9:01 AM
--- NOTE | 2024-10-09 10:38 | US ---
EXAMINATION TYPE: US arterial LE single level DATE OF EXAM: 10/09/2024 9:38 AM COMPARISONS: None. CLINICAL INDICATION: Male, 54 years old with history of R25.2 LEG CRAMPS, I10 HTN, Z72.0 TOBACCO USE; HTN TECHNIQUE: Systolic pressures were taken of the upper and lower extremity arteries with ankle-brachia l indices and toe brachial indices calculated bilaterally. History of: Smoker: Current Smoker Hypertension: Yes Diabetic: No Hyperlipidemia: No TIA/CVA: No Previous Vascular Surgery: No CAD: No OK: No Vascular Ulcers: No Claudication: No Gangrene: No FINDINGS: Doppler Waveforms: Right: Biphasic Left: Biphasic Brachial Artery systolic pressure: Right: 154 Left: 160 Posterior Tibial artery systolic pressure: Right: 156 Left: 163 Dorsalis Pedis artery systolic pressure: Right: 173 Left: 156 Ankle-Brachial Indices: Right: 1.08 Left: 0.95 (Normal > 0.6; Mild 0.35 - 0.59, Moderate 0.12 - 0.34, Severe <0.12) IMPRESSION: SHIVAM: Right: Normal 0.9 - 1.4, Recommendation: None Left: Normal 0.9 - 1.4, Recommendation: None [facility], , 10/09/2024 10:36 AM
--- NOTE | 2024-10-11 10:21 | US ---
EXAMINATION TYPE: US renal artery duplex complet DATE OF EXAM: 10/09/2024 COMPARISON: NONE CLINICAL INDICATION: Male, 54 years old with history of I10 HTN,Z72.0 TOBACCO USE; HTN patient did jain ve coffee this morning some limitations due to bowel gas. TECHNIQUE: Grayscale, color Doppler and spectral Doppler imaging of the bilateral renal arteries and kidneys. FINDINGS: MEASUREMENTS: RENAL SIZE: Right Kidney: 11.4 x 5.2 x 5.0 cm Left Kidney: 11.0 x 5.5 x 4.3 cm Right Kidney: No hydronephrosis or lesions seen Left Kidney: No hydronephrosis or lesions seen Abd Aorta: No AAA visualized RESISTANCE INDEX Right: 0.65 Left: 0.64 RA/AO RATIO (< 3.5 ) - aortic peak systolic velocity was not obtained by the fuel verification technician therefor e renal artery/aortic ratios not able to be obtained. RENAL ARTERY VELOCITY ( < 180 cm/s) Right: 231 Left: 155 Clinical Research Associate Notes: Appropriate color Doppler flow and spectral waveforms to the kidneys bilaterally. Grayscale imaging of the kidneys and show no evidence for hydronephrosis or mass. No renal calculi or cysts visualized. IMPRESSION: Concerning for right renal artery stenosis with elevated right renal artery velocity however there is normal resistive index. Recommend further evaluation with CTA. [facility], , 10/11/2024 10:18 AM
== END | disposition home or self-care (01) ==
LOC: RADUSWWP 08:08
PROVIDERS: ATTEND Family Medicine
DX: Z12.2 Encounter for screening for malignant neoplasm of respiratory organs (principal); J43.9 Emphysema, unspecified; I10 Essential (primary) hypertension; R25.2 Cramp and spasm; F17.210 Nicotine dependence, cigarettes, uncomplicated
CPT/HCPCS: 71271; 93922